=== PATIENT | male | born 1975 | race Caucasian/White ===

== ENCOUNTER 2019-05-06 08:42 | Inpatient (IN) | payer OTHER ==
[2019-05-06 09:02] VITALS: BMI 28.4
--- NOTE | 2019-05-06 09:29 | HP ---
CIWA Score - Admission Criteria OASAS Guidelines: Admission for Medically Managed Detox: Requires at least one of the followin. CIWA greater than 12 2. Seizures within the past 24 hours 3. Delirium tremens within the past 24 hours 4. Hallucinations within the past 24 hours 5. Acute intervention needed for co occurring medical disorder 6. Acute intervention needed for co occurring psychiatric disorder 7. Severe withdrawal that cannot be handled at a lower level of care (continued vomiting, continued diarrhea, abnormal vital signs) requiring intravenous medication and/or fluids 8. Admitting History and Physical - Admission Chief Complaint: " I want to stop using the xanax." History of Present Illness: 43 year old male with opioid dependence on MAT of methadone 160mg daily at [facility]. He was sent for detox from Xanax which he has been using on a daily basis. He is using Xanax up to 12 mg daily, sometimes even intranasally using it. He has been abstaining from heroin due to methadone maintenance. He was using up to 30 bags of heroin, intravenously. He just came of off [facility] for HCV. Seizures upon withdrawals of Xanax, last 2 years ago He smokes 2-3 ciggarettes per day. He denies any other substances of abuse. PMH: HCV treated and cured. Psurg: None Psych: Depression, Panic and Anxiety Disorder under treatment with psychiatrist. Meds: Lexapro All: NKDA He has no legal issues pending. He is domiciled, single but has significant other. Patient was referred to rehab due to Xanax abuse. He has a psychiatrist who is willing to follow up upon detox with ativan and continue treatment for his Anxiety and Panic disorder Letter included from Dr. Yves Johnson MD at [facility]. History Source: Patient Limitations to Obtaining History: No Limitations - Past Medical History Psych: Yes: Anxiety, Bipolar, Panic - Past Surgical History Past Surgical History: Yes: None - Advance Directives Advance Directives: No: Living Will, Health Care Proxy, DNR - Smoking History Smoking history: Current every day smoker Have you smoked in the past 12 months: Yes Aproximately how many cigarettes per day: 2 - Alcohol/Substance Use Hx Alcohol Use: No History of Substance Use: reports: Heroin, Tranquilizers - Social History Usual Living Arrangement: Yes: Alone Do you think of yourself as: Straight/Heterosexual ADL: Independent Occupation: unemployed, master motorcycle technician History of Recent Travel: No Admission ROS [facility] - [facility] Allergies/Adverse Reactions: Allergies Allergy/AdvReac Type Severity Reaction Status Date / Time No Known Allergies Allergy Verified 05/06/19 08:49 - Ebola screening Have you traveled outside of the country in the last 21 days: No Have you had contact with anyone from an Ebola affected area: No Have you been sick,other than usual withdrawal symptoms: No Do you have a fever: No - Review of Systems Constitutional: No Symptoms Reported EENT: reports: No Symptoms Reported Respiratory: reports: Cough (unproductive) Cardiac: reports: No Symptoms Reported GI: reports: No Symptoms Reported : reports: No Symptoms Reported Musculoskeletal: reports: No Symptoms Reported Integumentary: reports: Pruritus Neuro: reports: No Symptoms reported Endocrine: reports: No Symptoms Reported Hematology: reports: No Symptoms Reported Psychiatric: reports: Agitated, Anxious, Depressed Other Systems: Reviewed and Negative Patient History - Patient Medical History Hx Anemia: No Hx Asthma: No Hx Chronic Obstructive Pulmonary Disease (COPD): No Hx Cancer: No Hx Cardiac Disorders: No Hx Congestive Heart Failure: No Hx Hypertension: No Hx Hypercholesterolemia: No Hx Pacemaker: No HX Cerebrovascular Accident: No Hx Seizures: No Hx Dementia: No Hx Diabetes: No Hx Gastrointestinal Disorders: No Hx Liver Disease: No Hx Genitourinary Disorders: No Hx Sexually Transmitted Disorders: No Hx Renal Disease (ESRD): No Hx Thyroid Disease: No Hx Human Immunodeficiency Virus (HIV): No (last tested 1 year ago) Hx Hepatitis C: Yes (treated) Hx Depression: Yes Hx Suicide Attempt: No Hx Bipolar Disorder: No Hx Schizophrenia: No Other Medical History: panic and anxiety disorder - Patient Surgical History Past Surgical History: No - PPD History Previous Implant?: Yes Documented Results: Negative w/o proof Implanted On Prior [facility] Admission?: Yes Date: 02/24/19 Results: negative PPD to be Administered?: Yes - Smoking Cessation Smoking history: Current every day smoker Have you smoked in the past 12 months: Yes Aproximately how many cigarettes per day: 2 Hx Chewing Tobacco Use: No Initiated information on smoking cessation: Yes 'Breaking Loose' booklet given: 05/06/19 - Substances abused Alprazolam (Xanax) Substance route: Oral Frequency: Daily Amount used: 2MG-20MG Age of first use: 20 Date of last use: 05/06/19 Admission Physical Exam [facility] - Vital Signs Vital Signs: Vital Signs - 24 hr 05/06/19 08:53 Temperature 97.7 F Pulse Rate 76 Respiratory 20 Rate Blood Pressure 124/84 - Physical General Appearance: Yes: Mild Distress HEENTM: Yes: EOMI, Hearing grossly Normal, Normal ENT Inspection, Normocephalic , Normal Voice, TIANA, Pharynx Normal, Tm's normal Respiratory: Yes: Chest Non-Tender, Lungs Clear, Normal Breath Sounds, No Respiratory Distress, No Accessory Muscle Use Neck: Yes: No masses,lesions,Nodules, Supple, Trachea in good position Breast: Yes: Within Normal Limits Abdominal: Yes: Soft, Decreased BS, Other (tenderness right lower quadrant but no guarding.) Genitourinary: Yes: Within Normal Limits, Other (left perennial area erythema) Back: Yes: Within Normal Limits Musculoskeletal: Yes: full range of Motion, Gait Steady, Pelvis Stable Extremities: Yes: Normal Capillary Refill, Normal Inspection, Normal Range of Motion, Non-Tender Neurological: Yes: newspaper correspondent II-XII NML intact, Fully Oriented, Alert, Motor Strength 5/5, Normal Response, Other (anxious) Integumentary: Yes: Normal Color, Warm Lymphatic: Yes: Within Normal Limits - Diagnostic (1) Moderate benzodiazepine use disorder Current Visit: Yes Status: Acute (2) Anxiety disorder Current Visit: Yes Status: Acute (3) Depression Current Visit: Yes Status: Acute Screened but not Admitted - Documentation of Visit Screened but not Admitted: No Breathalyzer - Breathalyzer Breathalyzer: 0 (none) Vital Signs - Vital Signs Vital signs refused: No Inpatient Rehab Admission - Rehab Decision to Admit Inpatient rehab admission?: Yes - Initial Determination Are CD services needed?: Yes Free of communicable disease: Yes Not in need of hospitalization: Yes - Rehab Admission Criteria Previous failed treatment: Yes Poor recovery environment: Yes Comorbidities: Yes Lacks judgement: Yes Patient is meeting Inpatient Rehab admission criteria:: Yes
[2019-05-06] MEDS ORDERED: guaiFENesin 200 MG/10 ML 10 ML UNIT-DOSE CUPS PO PRN (09:38)
[2019-05-06] MEDS ORDERED: LOPERAMIDE HCL 2 MG CAPSULE PO PRN (09:38)
[2019-05-06] MEDS ORDERED: MAG HYDROX/AL HYDROX/SIMETH 30 ML UNIT-DOSE CUP PO PRN (09:38)
[2019-05-06] MEDS ORDERED: MENTHOL/PHENOL 1 EACH UD MM PRN (09:38)
[2019-05-06] MEDS ORDERED: MAGNESIUM HYDROX 2400MG/30ML ORAL SUSPENSION 30 ML CUP PO PRN (09:38)
[2019-05-06] MEDS ORDERED: P-EPHED 60MG/TRIPROLIDI 2.5MG TABLET PO PRN (09:38)
[2019-05-06] MEDS ORDERED: MAGNESIUM CITRATE 300 ML BOTTLE PO PRN (09:38)
[2019-05-06] MEDS ORDERED: IBUPROFEN 400 MG TABLET (FP) PO PRN (09:38)
[2019-05-06] MEDS ORDERED: TUBERCULIN PPD 5 TU/0.1ML VIAL ID ONE (12:37)
[2019-05-06] MEDS: PRENATAL VITAMINS W/ FOLIC ACID TABLET (FP) PO SCH (12:41)
[2019-05-06] MEDS: NICOTINE 7 MG/24 HOURS TOPICAL PATCH TD SCH (12:41)
[2019-05-06] MEDS: LORazepam 2 MG TABLET PO SCH ×3 (12:41→22:10)
--- NOTE | 2019-05-06 12:41 | CONSULT ---
[facility] Psychiatric Consult - Data Date of interview: 05/06/19 Admission source: [facility] Identifying data: Mr Dumas is a 43 years old single male, unemployed receiving food stamp, domiciledc admitted to this facility on for inpatient rehabilitation Substance Abuse History: reports history of xanax use. Refer to addiction counselor's summary for further information Medical History: Significant for history of treatment for hepatitis C and benzodiazepine withdrawal sezure. Patient is on methadone 160 mg/day from [facility]. Smokes 2-3 cigarettes daily Psychiatric History: Reports receiving treatment for depression and anxiety for the past 25 years.For over these years, he was tried on several medications including Paxil, zoloft, Buspar, Effexor, Seroquel. He is currently on Lexapro 20 mg/day and Klonopin 1 mg/bid prescribed by Dr Mike Johnson, psychiatrist affiliated with [facility]. Denies previous psychiatric hospitalization or suicidal attempt. At present, reports ffeeling anxious. Physical/Sexual Abuse/Trauma History: Denies history of abuse as achild and DV sa an adult. No service Mental Status Exam - Mental Status Exam Alert and Oriented to: Time, Place, Person Cognitive Function: Fair Patient Appearance: Well Groomed Mood: Anxious Affect: Appropriate Speech Pattern: Clear Thought Process: Intact, Goal Oriented Thought Disorder: Not Present Hallucinations: Denies Suicidal Ideation: Denies Homicidal Ideation: Denies Insight/Judgement: Poor Sleep: Well Appetite: Good Muscle strength/Tone: Normal Gait/Station: Normal Psychiatric Findings - Problem List ([place] 1, 2,3) (1) Anxiety disorder Current Visit: Yes Status: Chronic (2) Substance-induced anxiety disorder Current Visit: Yes Status: Acute (3) Sedative hypnotic or anxiolytic dependence Current Visit: Yes Status: Acute (4) Nicotine dependence Current Visit: Yes Status: Chronic (5) Hepatitis C Current Visit: Yes Status: Resolved (6) Withdrawal seizures Current Visit: Yes Status: Resolved - Initial Treatment Plan Initial Treatment Plan: 1) Continue Lexapro 20 mg po daily. 2) Continue inpatient rehabilitation
[2019-05-06] MEDS: CLOTRIMAZOLE 1% CREAM 15 GM TUBE TP SCH ×2 (12:42→22:11)
[2019-05-06 12:50] LABS: HEMOGLOBIN 15.3 GM/dL (11.7-16.9); MCH 30.5 pg (25.7-33.7); MCHC 33.3 g/dl (32.0-35.9); MEAN CELL VOLUME 91.8 fl (80-96); MEAN PLT VOLUME 9.3 fl (7.5-11.1); PLATELET COUNT 207 K/MM3 (134-434); RBC 5.01 M/mm3 (4.00-5.60); RDW 14.6 % (11.9-15.9); WHITE BLOOD COUNT 5.2 K/mm3 (4.0-10.0)
[2019-05-06 13:03] LABS: ALBUMIN 4.1 g/dl (3.4-5.0); BILIRUBIN,TOTAL 0.3 mg/dL (0.2-1); BLOOD UREA NITROGEN 14.8 mg/dL (7-18); CALCIUM 9.6 mg/dL (8.5-10.1); CREATININE 1.2 mg/dL (0.55-1.3); POTASSIUM 4.9 mmol/L (3.5-5.1); TOT PROT 7.5 g/dl (6.4-8.2)
--- NOTE | 2019-05-06 13:59 | PN ---
[facility] Progress Note Note: Pt is a new admit to rehab this afternoon. saw pt in dinning room eating lunch. Alert o x 3. NAD, Discussed with Dr Niranjan cavazos pt's Ativan protocol and Acoustic Sensor Operator approved pt to continue with Ativan taper for benzo(xanax) withdrawals as directed. Pt will follow up with his referral source which is: [place] [address] Swapnil Alva DNP,PMHNP- Invoice Coder [phone] Treating provider: George Johnson MD Vital Signs - 24 hr 05/06/19 05/06/19 08:53 11:31 Temperature 97.7 F 97.8 F Pulse Rate 76 57 L Respiratory 20 18 Rate Blood Pressure 124/84 103/66 Laboratory Tests 05/06/19 05/06/19 05/06/19 10:00 10:00 10:00 WBC 5.2 RBC 5.01 Hgb 15.3 Hct 46.0 MCV 91.8 MCH 30.5 MCHC 33.3 RDW 14.6 Plt Count 207 MPV 9.3 Sodium 138 Potassium 4.9 Chloride 105 Carbon Dioxide 32 Anion Gap 1 L BUN 14.8 Creatinine 1.2 Est GFR (CKD-EPI)AfAm 85.32 Est GFR (CKD-EPI)NonAf 73.62 Random Glucose 82 Calcium 9.6 Total Bilirubin 0.3 AST 31 ALT 34 Alkaline Phosphatase 92 Total Protein 7.5 Albumin 4.1 RPR Titer Nonreactive Pt to Continue treatment Moniotor status per protocol Increase po fluids as tolerated.
[2019-05-06] MEDS: ESCITALOPRAM OXALATE PO SCH (14:31)
[2019-05-06] MEDS ORDERED: MELATONIN 5 MG TABLETS PO PRN (22:00)
[2019-05-06] MEDS: THIAMINE HCL 100 MG TABLET (FP) PO SCH (22:10)
[2019-05-07] MEDS: LORazepam 2 MG TABLET PO SCH ×2 (06:12→10:31)
[2019-05-07] MEDS: METHADONE HCL 40 MG DISPERSABLE TABLET PO SCH (06:12)
[2019-05-07] MEDS: PRENATAL VITAMINS W/ FOLIC ACID TABLET (FP) PO SCH (10:29)
[2019-05-07] MEDS: ESCITALOPRAM OXALATE PO SCH (10:29)
[2019-05-07] MEDS: CLOTRIMAZOLE 1% CREAM 15 GM TUBE TP SCH ×2 (10:29→22:12)
[2019-05-07] MEDS: NICOTINE 7 MG/24 HOURS TOPICAL PATCH TD SCH (10:29)
[2019-05-07] MEDS: ESCITALOPRAM OXALATE 20 MG TABLET (FP) PO SCH (10:32)
[2019-05-07] MEDS ORDERED: FLU VACCINE QUAD 60 MCG/0.5 ML (MDV 19-20) IM ONE (12:00)
[2019-05-07] MEDS: LORazepam 1 MG TABLET PO PRN ×2 (13:58→21:00)
[2019-05-07 14:49] LABS: PH,URINE 5.5 (5.0-8.0); URINE APPEARANCE CLEAR; URINE BILIRUBIN NEGATIVE (NEGATIVE); URINE COLOR YELLOW; URINE GLUCOSE (UA) NEGATIVE (NEGATIVE); URINE KETONE NEGATIVE (NEGATIVE); URINE LEUK ESTERASE NEGATIVE (NEGATIVE); URINE NITRITE NEGATIVE (NEGATIVE); URINE PROTEIN NEGATIVE (NEGATIVE); URINE UROBILINOGEN 0.2 mg/dL (0.2-1.0)
[2019-05-07] MEDS: THIAMINE HCL 100 MG TABLET (FP) PO SCH (20:59)
[2019-05-08] MEDS: LORazepam 1 MG TABLET PO SCH ×4 (05:55→23:00)
[2019-05-08] MEDS: METHADONE HCL 40 MG DISPERSABLE TABLET PO SCH (06:17)
[2019-05-08] MEDS: LORazepam 1 MG TABLET PO PRN ×3 (08:30→21:27)
[2019-05-08] MEDS: PRENATAL VITAMINS W/ FOLIC ACID TABLET (FP) PO SCH (10:01)
[2019-05-08] MEDS: NICOTINE 7 MG/24 HOURS TOPICAL PATCH TD SCH (10:01)
[2019-05-08] MEDS: ESCITALOPRAM OXALATE 20 MG TABLET (FP) PO SCH (10:01)
[2019-05-08] MEDS: CLOTRIMAZOLE 1% CREAM 15 GM TUBE TP SCH ×2 (10:02→21:27)
[2019-05-08] MEDS: ESCITALOPRAM OXALATE PO SCH (11:45)
[2019-05-08] MEDS: ACETAMINOPHEN 325 MG TABLET (FP) PO PRN (11:57)
[2019-05-08] MEDS: THIAMINE HCL 100 MG TABLET (FP) PO SCH (21:26)
[2019-05-09] MEDS ORDERED: LORazepam 0.5 MG TABLET PO PRN
[2019-05-09] MEDS: LORazepam 0.5 MG TABLET PO SCH ×4 (05:08→22:37)
[2019-05-09] MEDS: METHADONE HCL 40 MG DISPERSABLE TABLET PO SCH (06:08)
[2019-05-09] MEDS: NICOTINE 7 MG/24 HOURS TOPICAL PATCH TD SCH (10:07)
[2019-05-09] MEDS: PRENATAL VITAMINS W/ FOLIC ACID TABLET (FP) PO SCH (10:07)
[2019-05-09] MEDS: ESCITALOPRAM OXALATE 20 MG TABLET (FP) PO SCH (10:07)
[2019-05-09] MEDS: ACETAMINOPHEN 325 MG TABLET (FP) PO PRN (10:08)
[2019-05-09] MEDS: CLOTRIMAZOLE 1% CREAM 15 GM TUBE TP SCH ×2 (10:09→22:37)
[2019-05-09] MEDS: ESCITALOPRAM OXALATE PO SCH (10:11)
[2019-05-09] MEDS: THIAMINE HCL 100 MG TABLET (FP) PO SCH (22:37)
[2019-05-10] MEDS ORDERED: LORazepam 0.5 MG TABLET PO ONE (05:00)
[2019-05-10] MEDS: METHADONE HCL 40 MG DISPERSABLE TABLET PO SCH (06:02)
[2019-05-10] MEDS: PRENATAL VITAMINS W/ FOLIC ACID TABLET (FP) PO SCH (09:43)
[2019-05-10] MEDS: ESCITALOPRAM OXALATE 20 MG TABLET (FP) PO SCH (09:43)
[2019-05-10] MEDS: NICOTINE 7 MG/24 HOURS TOPICAL PATCH TD SCH (09:43)
[2019-05-10] MEDS: LORazepam 0.5 MG TABLET PO PRN ×2 (09:46→17:24)
[2019-05-10] MEDS: CLOTRIMAZOLE 1% CREAM 15 GM TUBE TP SCH ×2 (09:47→22:44)
[2019-05-10] MEDS: ESCITALOPRAM OXALATE PO SCH (10:02)
[2019-05-10] MEDS: THIAMINE HCL 100 MG TABLET (FP) PO SCH (22:44)
[2019-05-11] MEDS: LORazepam 0.5 MG TABLET PO PRN ×4 (00:58→19:35)
[2019-05-11] MEDS: METHADONE HCL 40 MG DISPERSABLE TABLET PO SCH (06:12)
[2019-05-11] MEDS: CLOTRIMAZOLE 1% CREAM 15 GM TUBE TP SCH ×2 (10:35→21:44)
[2019-05-11] MEDS: ESCITALOPRAM OXALATE PO SCH (10:37)
[2019-05-11] MEDS: ESCITALOPRAM OXALATE 20 MG TABLET (FP) PO SCH (10:37)
[2019-05-11] MEDS: PRENATAL VITAMINS W/ FOLIC ACID TABLET (FP) PO SCH (10:37)
[2019-05-11] MEDS: NICOTINE 7 MG/24 HOURS TOPICAL PATCH TD SCH (10:37)
--- NOTE | 2019-05-11 11:40 | PN ---
S Progress Note Note: Patient is scheduled for discharge tomorrow. Script for 30 days supply of Lexapro 20 mg/day is electronically transmitted to [employer] at [facility] [place] [address]
--- NOTE | 2019-05-11 12:17 | PN ---
[facility] Progress Note Note: Pt reports today that he is leaving tomorrow to follow up with his doctor at the [facility] health stating that he has "detoxed off the Xanax" and will go back to his psychiatrist/MMTP to continue with Klonopin and Methadone. Pt was reminded the dangers of mixing Methadone and benzos especially after being on taper. Pt states his MMTP has a rehab ready for him after discharge from this program. Pt reports he has a primary care doctor, Dr. Antione Negron at [facility]. Vital Signs - 24 hr 05/11/19 05/11/19 05/11/19 00:30 03:30 07:12 Temperature 98.1 F Pulse Rate 59 L Respiratory 17 18 18 Rate Blood Pressure 116/78 D/w Pt he will follow up with all his referring primary providers upon discharge in the morning. Call was placed to referring provider, Swapnil Alva DNP/George Johnson M.D but unable to reach providers. Pt states he will call his providers to let them know he is returning and will receive his last methadone here in the morning and follow up with his psychiatrist at [facility][note 3] tomorrow.
--- NOTE | 2019-05-11 12:18 | DS ---
[facility] Rehab Discharge Summary - [facility] Rehab Discharge Summary Admission Date: 05/06/19 Discharge Date: 05/12/19 - History Present History: MMTP, Sedative dependence Additional Comments: Pt is a 43 y/o male with a hx of ANUM admitted to rehab and discharging on . Pt was referred from [facility] and will be going back to follow up with his psychiatrist and MMTP same day. Pertinent Past History: Hep C Hx withdrawal seizures - Discharge Physical Exam Vital Signs: Vital Signs Temperature 98.1 F 05/11/19 07:12 Pulse Rate 59 L 05/11/19 07:12 Respiratory Rate 18 05/11/19 07:12 Blood Pressure 116/78 05/11/19 07:12 O2 Sat by Pulse Oximetry (%) Pertinent Admission Physical Exam Findings: Laboratory Tests 05/06/19 05/06/19 05/06/19 10:00 10:00 10:00 WBC 5.2 RBC 5.01 Hgb 15.3 Hct 46.0 MCV 91.8 MCH 30.5 MCHC 33.3 RDW 14.6 Plt Count 207 MPV 9.3 Sodium 138 Potassium 4.9 Chloride 105 Carbon Dioxide 32 Anion Gap 1 L BUN 14.8 Creatinine 1.2 Est GFR (CKD-EPI)AfAm 85.32 Est GFR (CKD-EPI)NonAf 73.62 Random Glucose 82 Calcium 9.6 Total Bilirubin 0.3 AST 31 ALT 34 Alkaline Phosphatase 92 Total Protein 7.5 Albumin 4.1 Urine Color Urine Appearance Urine pH Ur Specific [place] Urine Protein Urine Glucose (UA) Urine Ketones Urine Blood Urine Nitrite Urine Bilirubin Urine Urobilinogen Ur Leukocyte Esterase RPR Titer Nonreactive 05/07/19 09:25 WBC RBC Hgb Hct MCV MCH MCHC RDW Plt Count MPV Sodium Potassium Chloride Carbon Dioxide Anion Gap BUN Creatinine Est GFR (CKD-EPI)AfAm Est GFR (CKD-EPI)NonAf Random Glucose Calcium Total Bilirubin AST ALT Alkaline Phosphatase Total Protein Albumin Urine Color Yellow Urine Appearance Clear Urine pH 5.5 Ur Specific [place] 1.020 Urine Protein Negative Urine Glucose (UA) Negative Urine Ketones Negative Urine Blood Negative Urine Nitrite Negative Urine Bilirubin Negative Urine Urobilinogen 0.2 Ur Leukocyte Esterase Negative RPR Titer Unremarkable and unchanged from admission - Treatment Discharge Condition: Discharge condition good Hospital Course: Rehabilitated safely and responded well. CD aftercare follow up back to [facility] Pt completed a 5 days Ativan taper and requested an early discharge back to his clinic. Pt's request discussed with Dr. Ureña, director marketing analytics. - Medication-Assisted Treatment (MAT) Medication-Assisted Treatment (MAT): No - Discharge Instructions Diet, activity, other medical instructions: Diet:Regular Activity: oob ad erick Other medical instructions:follow up with primary care doctor, Dr. Antione Negron @ [facility] within 1-2 weeks after discharge. Follow up with [facility]/Psych provider for medical management Follow up with CD aftercare as recommended and scheduled. - Diagnosis (1) Sedative hypnotic or anxiolytic dependence Status: Chronic (2) Nicotine dependence Status: Chronic Qualifiers: Nicotine product type: cigarettes Substance use status: uncomplicated Qualified Code(s): F17.210 - Nicotine dependence, cigarettes, uncomplicated (3) Hepatitis C Status: Resolved (4) Withdrawal seizures Status: Suspected - Follow-up Referral Minutes to complete discharge: 20 - AMA Did Patient Leave Against Medical Advice: No
[2019-05-11] MEDS: THIAMINE HCL 100 MG TABLET (FP) PO SCH (21:49)
[2019-05-12] MEDS: LORazepam 0.5 MG TABLET PO PRN ×2 (01:49→09:05)
[2019-05-12] MEDS: METHADONE HCL 40 MG DISPERSABLE TABLET PO SCH (05:47)
[2019-05-12 06:51] VITALS: BP 119/81; PULSE 73; TEMP 98.6
[2019-05-12] MEDS: PRENATAL VITAMINS W/ FOLIC ACID TABLET (FP) PO SCH (09:04)
[2019-05-12] MEDS: ESCITALOPRAM OXALATE PO SCH (09:04)
[2019-05-12] MEDS: ESCITALOPRAM OXALATE 20 MG TABLET (FP) PO SCH (09:05)
[2019-05-12] MEDS: NICOTINE 7 MG/24 HOURS TOPICAL PATCH TD SCH (09:05)
[2019-05-12] MEDS: CLOTRIMAZOLE 1% CREAM 15 GM TUBE TP SCH (09:05)
--- NOTE | 2019-05-12 14:52 | PN ---
S Progress Note Note: Pt was discharged to per his request for early discharge. Pt was in a hurry to leave and hence was not seen by this parts data writer before he exited the building. Please see Nurse's discharge notes. Vital Signs - 24 hr 05/12/19 05/12/19 05/12/19 00:30 03:30 06:51 Temperature 98.6 F Pulse Rate 73 Respiratory 18 18 18 Rate Blood Pressure 119/81
== END 2019-05-12 09:10 | disposition home or self-care (01) | DRG 772 ==
LOC: YASAS 08:42 → Y5N 10:25
PROVIDERS: ADMIT Neuromusculoskeletal Medicine & OMM; ATTEND Neuromusculoskeletal Medicine & OMM
PROC: HZ42ZZZ Group Counseling for Substance Abuse Treatment, Cognitive-Behavioral (ICD-10-PCS; principal; 2019-05-06)
DX: F13.20 Sedative, hypnotic or anxiolytic dependence, uncomplicated (principal); F11.20 Opioid dependence, uncomplicated; F17.210 Nicotine dependence, cigarettes, uncomplicated; F19.280 Other psychoactive substance dependence with psychoactive substance-induced anxiety disorder; F41.8 Other specified anxiety disorders; F32.9 Major depressive disorder, single episode, unspecified; B18.2 Chronic viral hepatitis C; Z86.69 Personal history of other diseases of the nervous system and sense organs
CPT/HCPCS: 36415; 80053; 81003; 85027; 86593; Q2036